=== PATIENT | male | born 1945 | race Caucasian/White ===

== ENCOUNTER → 2017-01-29 | Day surgery (SDC) | payer MEDICARE ==
[~2017-01-29] MED LIST: ASPI81TA82 PO; BUPIVACAINE/EPINEPHRINE 0.5% PF 30 ML VIAL ONE; ENAL20TA PO; FINA5TAB77 PO; GLUCTAB PO; GLYB1TAB51 PO; LACTATED RINGER'S 1000 ML INJ 1,000 ML ONE; ONDANSETRON HCL 4 MG/2 ML VIAL IV PUSH ONE; PRED20 PO; PROPOFOL 200 MG/20 ML AMP IV ONE; ROSU40 PO; TAMS0.4C67 PO; TOPR50TA PO; ceFAZolin INJ 1,000 MG VIAL ONE
--- NOTE | 2017-01-29 20:29 | MP ---
cc: AIYANA PIERCE M.D. DATE OF SURGERY: 01/29/2017. PREOPERATIVE DIAGNOSIS: Left knee medial meniscus tear. POSTOPERATIVE DIAGNOSIS: Left knee medial meniscus tear. OPERATIVE PROCEDURE PERFORMED: Left knee arthroscopic partial medial meniscectomy. SURGEON: Aiyana Pierce M.D. ANESTHESIA: General. ESTIMATED BLOOD LOSS: Minimal. DRAINS: None. SPECIMEN: None. COMPLICATIONS: None known. INDICATIONS FOR THE PROCEDURE: Estuardo Agarwal is an adult male with medial-sided knee pain, moderate osteoarthritis and unstable complex tear of the medial meniscus. The options of treatment were thoroughly discussed and detailed informed consent was obtained for arthroscopic surgery. No guarantees were offered. DESCRIPTION OF THE PROCEDURE IN DETAIL: The patient was brought to the operating room and he was placed under general anesthetic. The left lower extremity was prepped and draped in the usual sterile fashion. IV antibiotics were given. Time-out was completed. Inferior lateral portal Marcaine injected. Portal made. Blunt trocar used to introduce the cannula The knee was insufflated with saline. Chondromalacia noted, mild diffuse about the undersurface of patella and also within the trochlear groove. The lateral compartment was visualized and appeared normal. The ACL showed some mild tear, otherwise intact. 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 We proceeded with arthroscopic partial medial meniscectomy using a combination of basket forceps and arthroscopic shaver. We smoothed and contoured any unstable cartilage on the medial femoral condyle in multiple angles of flexion and slightly smoothed the trochlear groove as well. We took follow-up photographs and did a repeat diagnostic arthroscopy and confirmed no loose bodies. The arthroscopic equipment was removed. Marcaine was injected about the portals. Steri-Strips applied. Sterile dressing applied. The patient was awoken and returned to the recovery room in stable condition. MD CASEY Price/DINA /10:52 AM /8:26 PM
== END | disposition home or self-care (01) ==
LOC: ESDC 08:03
PROVIDERS: ATTEND Orthopaedic Surgery Sports Medicine
DX: S83.232A Complex tear of medial meniscus, current injury, left knee, initial encounter (principal); E11.9 Type 2 diabetes mellitus without complications; Z79.84 Long term (current) use of oral hypoglycemic drugs
CPT/HCPCS: 01400; 29881; 82948; J0690; J2405; J3010; J7120